=== PATIENT | male | born 1970 | race Caucasian/White ===

== ENCOUNTER → 2018-01-20 | Outpatient (CLI) | payer OTHER ==
[~2018-01-20] VITALS: Ht 180.3 cm; Wt 106.1 kg
[2018-01-20 14:53] VITALS: BP 136/83; PULSE 94; Ht 180.3 cm; Wt 106.1 kg
== END | disposition home or self-care (01) ==
LOC: C.NEUR 14:03
PROVIDERS: ATTEND Internal Medicine Pulmonary Disease
DX: R06.83 Snoring (principal); F45.8 Other somatoform disorders; G47.21 Circadian rhythm sleep disorder, delayed sleep phase type

== ENCOUNTER → 2018-01-27 | Outpatient (CLI) | payer OTHER ==
--- NOTE | 2018-01-28 05:50 | PAP/PSG TECHNICIAN REPORT ---
[facility] Cooler Operator Polysomnogram Report Study name: None Report date: 01/28/2018 Study date: 01/27/2018 Referring Physician: DR. WYATT Name: IGOR BOLIVAR Interpreting Physician: Vito Wyatt M.D. Date of : 1970 Cooler Operator: Ras Lozano RPSGT. Sex: Male Age: 47 StudyType: PSG Weight: 234 lbs 17 inches Height: 47 years, Height 5' 10" Neck Circum: BMI: 33.57 Medications: ASPIRIN 81 MG, HYDRALAZINE HCL 10 MG, HYDROXYZINE PAMOATE 25 MG, LISINOPRIL 10 MG, PARNATE 10 MG, PRAVASTATIN SODIUM 40 MG Patient History PATIENT HAS HISTORY OF LOUD SNORING, FATIGUE, DELAYED SLEEP PHASE SYNDROME AND NAPS DAILY. ALSO HAS POSSIBLE BRUXISM. HE IS HERE TODAY FOR AN EVALUATION OF A SLEEP DISORDER. ESS = 11 RM 6 Parameters Monitored NPSG: E1-M2, E2-M1, Fp1-M2, Fp2-M1, F3-M2, F4-M2, F4-M1, C3-M2, C4-M2, C4-M1, O1-M2, O2-M2, O2-M1, T3-M2, T4-M1, P3-M2, P4-M1, CHIN1, CHIN2, HR, EKG, Legs, PFLOW, SNOR, FLOW, CFLOW, Tidal Volume, THOR, ABDO, SpO2, PLTH, CPRESS, ETCO2 Wave, ETCO2, pH Sleep Architecture Sleep Stages Time at Lights Off 9:53:15 PM STAGES Time (min.) TST (%) Time at Lights On 5:26:45 AM Wake 61.5 -- Total Recording Time (TRT) 454.00 min. N1 23.5 6 Total Sleep Period (TSP) 428.5 min. N2 289.5 74 Total Sleep Time (TST) 392.0min. N3 48.0 12 Awake Time 62.0 min. REM 31.0 8 Wake after Sleep Onset 37.0 min. Sleep Efficiency (SE) 86 % Sleep Onset Latency (BRIANNA) 24.5 min. Number of Stage 1 Shifts None Awakenings 26 Stage Changes 74 Number of REM periods 2 REM 31.0 8 REM Latency 202.5 min. NREM 361.0 92 Body Position Analysis Supine Right Left Side Prone Vertical Total Sleep Time (min.) 18.8 70.2 156.1 226.35 166.7 0.0 Total Sleep Time (%) 4% 18% 40% 58 39% N/A% Total Sleep Time REM (min.) 0.0 0.0 31.0 None 0.0 0.0 Total Sleep Time NREM (min.) 14.1 70.2 125.1 None 151.6 0.0 Intermittent Wake (min.) 4.7 3.0 38.7 None 15.1 0.0 Total Sleep Period (%) 4% None None None None None Arousals Myoclonus (PLM) * Events Count Index Events Count Index Spontaneous 8 1 Events Awake (PLMW) 55 53.7 Respiratory 5 0.6 Events Asleep w/ Arousal (PLMA) 6 0.9 PLM 6 1 Events Asleep w/o Arousal (PLMS) 52 8.0 Snoring 34 5 Total Asleep 58 8.9 Total 47 7 Total 113 15 Respiratory Analysis * CA OA MA CH H RERA Total Count 0 0 0 0 38 2 38 Index 0.0 0.0 0.0 0 5.8 0 6.1 Mean Duration 0.0 0.0 0.0 0.00 17.0 15.2 16.9 Longest Duration 0.0 0.0 0.0 0.00 0.0 16.5 23.7 Respiratory Event Summary Total Supine ~Supine Right Left Prone REM NREM Apneas Count 0 0 0 0 0 0 0 0 Index 0.0 0 0 0.0 0.0 0 0 0 Hypopneas (4% Desat) Count 38 18 20 1 8 11 5 33 Index 5.8 76.8 3 0.9 3.1 4.4 9.7 5.5 Apneas & All Hypopneas Count 38 18 20 1 8 11 5 33 Index 5.8 77 3 1 3 4 9.7 5.5 Respiratory Events (Bolt Man+All Hyp+RERA) Count 38 18 22 1 10 11 5 33 Index 6.1 77 3 0.9 3.8 4.4 11.6 5.7 Respiratory Related Arousal Count 5 18 4 0 3 1 0 4 Index 0.6 0 1 0 1 0 0 1 Snoring Analysis Supine Right Left Prone REM NREM Total Snore duration 124.3 min Snores count 189 940 2,108 1,856 322 4,771 5,093 Snore mean duration 1.5 Sec Snores index 807 803 810 735 623.2 793.0 779.5 TST with snoring (%) 31.7% Desaturation Event Summary: Minimum %SpO2 Event Count Mean/Min/Max Duration(sec.) Desaturation Index % Time In Bed > 90 46 31.0 / 7.3 / 59.8 7.6 80.5 86 - 90 3 21.5 / 7.3 / 31.0 2.4 16.8 81 - 85 2 59.9 / 59.8 / 60.0 10.3 2.6 76 - 80 0 N/A 0.0 0.1 71 - 75 0 N/A 0.0 0.0 66 - 70 0 N/A 0.0 0.0 61 - 65 0 N/A 0.0 0.0 56 - 60 0 N/A 0.0 0.0 51 - 55 0 N/A 0.0 0.0 < 50 0 N/A 0.0 0.0 Total REM NREM Awake <50% 0.0 min. 0.0 min. 0.0 min. 0.0 min. 51 - 60% 0.0 min. 0.0 min. 0.0 min. 0.0 min. 61 - 70% 0.0 min. 0.0 min. 0.0 min. 0.0 min. 71 - 80% 0.7 min. 0.0 min. 0.7 min. 0.0 min. 81 - 90% 87.5 min. 12.8 min. 67.4 min. 7.3 min. 91 - 100% 364.3 min. 18.2 min. 292.5 min. 53.6 min. Average 91 91 91 92 Minimum SpO2 79 86 79 84 Desaturation Event Index 6.6 9.7 5.8 10.7 # Desat. Events below 89% 18 2 13 3 Time(%) with Saturation below 89% 6.7 0.8 5.6 0.3 Time(min.) with Saturation below 89% 30.4 3.8 25.3 1.3 Time (mins) REM (mins) NREM (mins) % of TST SpO2 Below 90% 28 4 N24 11.6 SpO2 Below 88% 7 0 0 4 Heart Rate Analysis Min (bpm) Max (bpm) Average (bpm) Awake 63 101 82 NREM 53 94 77 REM 72 89 78 Overall 53 94 77 Supplemental O2 Values Minimum O2 level: None Value Start Time End Time Cooler Operator Comments Mr. Bolivar slept in the right, left, supine and prone positions. No cardiac arrhythmia noted. Leg movements noted. No bruxism noted. Snoring was noted and scored as a 5 on a scale of 1 through 5. (0=no snoring, 5=snoring loud enough to be heard through a closed door or down the ly way) Mr. Bolivar awoke to use the restroom 0 times during the night. Mr. Bolivar stated I slept as well as I do when I am in my own bed. The final report will be interpreted and signed by a sleep physician. The completed physician report will then be placed in the patient medical record. Therapy (cm H2O) 0 TIB (min.) 453.5 TST (min.) 392.0 Sleep Onset (min.) 24.5 REM Onset From Sleep (min.) 202.5 Sleep Efficiency % 86 Wakefulness (%) 14 Wakefulness (min.) 62.0 NREM 1 (%) 6 NREM 1 (min.) 23.5 NREM 2 (%) 74 NREM 2 (min.) 289.5 NREM 3 (%) 12 NREM 3 (min.) 48.0 REM (%) 8 REM (min.) 31.0 # Arousals 47 Arousal Index 7 # Snore 5,093 Snore Index 779.5 AHI 5.8 AHI Supine 77 AHI Non-Supine 3 NREM AHI 5.5 REM AHI 9.7 RDI 6.1 # Obstructive Apnea 0 # Central Apnea 0 # Mixed Apnea 0 # Hypopneas 38 RERAs 2 Total Respiratory Events 41 Time Below SpO2 89% (min.) 29.1 Mean NREM SpO2 (%) 91 Mean REM SpO2 (%) 91 Mean Sleep SpO2 (%) 91 Min NREM SpO2 (%) 79 Min REM SpO2 (%) 86 Position Supine (min.) 18.8 Position Non-supine (min.) 377.9 LM Index Sleep 8.9 LM Index NREM 7.8 LM Index REM 21.3 Mean Heart Rate (bpm) 77 Min Heart Rate (bpm) 53
--- NOTE | 2018-02-02 16:57 | POLYSOMNOGRAPH REPORT ---
CLINICAL DATA: A 47-year-old male with BMI of 33.[address] Tyler and Dr. Ramses Maharaj for evaluation of possible sleep apnea and bruxism. He does have delayed sleep phase syndrome and naps every day. His [place] sleepiness score is 11/24. He does have loud snoring. SLEEP ARCHITECTURE: Total sleep period was 428.5 minutes. Total sleep time was 392 minutes divided between 361 minutes of non-REM sleep and 31 minutes of REM sleep. Sleep onset latency was 24.5 minutes. REM latency was 222.5 minutes. Sleep efficiency was 86%. Wake after sleep onset was 37 minutes. Sleep consisted of stage N1 6%, stage N2 74%, stage N3 12%, and REM 8%. AROUSAL DATA: 47 arousals were recorded for an index of 7 per hour. 34 were due to snoring events. PLM DATA: 58 limb movements during sleep were noted for an index of 0.9 per hour with arousal index of 0.9 per hour. RESPIRATORY DATA: Very mild / borderline sleep apnea was seen. The AHI was 5.8. The RDI was 6.1. There were 38 hypopneic episodes with a mean duration of 17 seconds. There were 2 RERA's. The longest RERA was 16.5 seconds. OXIMETRY DATA: Mild nocturnal hypoxemia was seen. Oxygen sravani was 79%. Mean saturation was 91%. Time below 88% was 7 minutes. EKG: Heart ranged from 53-94 beats per minute. No arrhythmias were noted. OIL WELL ENGINEER'S COMMENTS: The patient slept in the right, left, supine, and prone positions. Snoring was severe, rated 5 on a scale of 1-5. No bruxism was noted. IMPRESSION: Mild sleep apnea/hypopnea with an AHI of 5.8 and RDI of 6.1 with frequent arousals due to snoring events and no evidence of bruxism. RECOMMENDATIONS: The patient may benefit from use of an oral appliance. [facility]
== END | disposition home or self-care (01) ==
LOC: C.NEUR 21:00
PROVIDERS: ATTEND Internal Medicine Pulmonary Disease
DX: G47.33 Obstructive sleep apnea (adult) (pediatric) (principal); G47.21 Circadian rhythm sleep disorder, delayed sleep phase type